=== PATIENT | male | born 1990 | race Two or more races ===

== ENCOUNTER 2017-06-11 18:39 | Emergency (ER) | payer SELFPAY ==
[~2017-06-11] VITALS: Ht 160 cm; Wt 61.2 kg
--- NOTE | 2017-06-11 18:45 | NUR ---
BBRA 61 FROM HOME FOR PAIN TO LEFT RIB CAGE AREA X 3 MONTHS. A/OX 4. BREATHING EVEN AND UNLABORED. NO SOB, NAD. VITALS STABLE. SAFETY AND COMFORT MEASURES IN PLACE. AWAITING MD ORDERS.
--- NOTE | 2017-06-11 19:08 | NUR ---
OFELIA BOSTON AT BEDSIDE FOR EVAL. REPORT GIVEN TO ELICEO JOHANSEN FOR CASEY.
[2017-06-11 19:11] VITALS: BP 144/75
--- NOTE | 2017-06-11 19:18 | NUR ---
Patient eloped from facility. ER MD notified.
== END 2017-06-11 19:20 | disposition left against medical advice (07) ==
LOC: ER 18:41
DX: R07.81 Pleurodynia (principal)
CPT/HCPCS: A4606; Z7610

== ENCOUNTER 2020-03-01 10:33 | Emergency (ER) | payer OTHER ==
[~2020-03-01] VITALS: Ht 157.5 cm; Wt 59.4 kg
--- NOTE | 2020-03-01 10:40 | NUR ---
PT BIBRA C/O OVERDONE WITH HEROIN AND XANAX, PER REPORT PT WAS GIVEN 1MG OF NARCAN PRIOR TO ARRIVAL. PT IS EASILY AROUSABLE TO NAME, VERBALLY RESPONSIVE. BREATHING EVEN AND UNLABORED. VS CHECKED. HOOKED ON MONITOR. WAITING MD ARNOLD.
[2020-03-01] MEDS ORDERED: NALOXONE PREFILLED SYRINGE 2 MG/2 ML SYRINGE ONE (11:11)
[2020-03-01 11:29] LABS: BASOPHILS # (AUTO) 0.1 /CMM (0.0-0.2); BASOPHILS % (AUTO) 1.2 % (0.0-2.0); EOSINOPHILS % (AUTO) 9.8 % (0.0-6.0); HEMATOCRIT 42 % (39-51); HEMOGLOBIN 13.1 g/dL (13.5-17.5); MEAN CORPUSCULAR HGB CONC 32 g/dl (31.0-36.0); MEAN CORPUSCULAR VOLUME 86 fL (80-96); MONOCYTES # (AUTO) 0.5 /CMM (0.1-1.30); MONOCYTES % (AUTO) 4.9 % (2.0-12.0); NEUTROPHILS # (AUTO) 5.8 /CMM (1.8-8.9); NEUTROPHILS % (AUTO) 62.1 % (43.0-81.0); PLATELET COUNT (AUTO) 345 /CMM (150-450); RED BLOOD CELL COUNT(AUTO) 4.84 MIL/uL (4.5-6.0); WHITE BLOOD COUNT (AUTO) 9.3 K/uL (4.3-11.0)
[2020-03-01] MEDS ORDERED: IV NS 0.9% 1,000 ML BAG IV ONE (11:30)
[2020-03-01] MEDS ORDERED: NALOXONE HCL 0.4 MG/ML AMPUL IV ONE (11:30)
[2020-03-01 11:35] LABS: CALCIUM, SERUM 9.1 mg/dL (8.5-10.1); CARBON DIOXIDE 27 mmol/L (21-32); CHLORIDE 105 mmol/L (98-107); CREATININE 0.6 mg/dL (0.6-1.3); GLUCOSE 108 mg/dL (74-106); POTASSIUM 4.4 mmol/L (3.5-5.1); SODIUM SERUM 140 mmol/L (136-145); UREA NITROGEN, BLOOD 11 mg/dL (7-18)
[2020-03-01 11:37] LABS: ALCOHOL, BLOOD < 3 mg/dL (0-0)
--- NOTE | 2020-03-01 13:35 | NUR ---
PT IS AROUSABLE TO VERBAL AND TACTILE STIMULI. HOWEVER STILL LETHARGIC. VSS
--- NOTE | 2020-03-01 15:00 | NUR ---
PT IS AROUSABLE TO VERBAL AND TACTILE STIMULI. BREATHING EVEN AND UNLABORED. NO CARDIAC OR RESPIRATORY DISTRESS NOTED. NO SOB NOTED. HOWEVER STILL VERY SLEEPY AND LETHARGIC. VSS
--- NOTE | 2020-03-01 18:28 | NUR ---
PT IN BED STILL SLEEPING. AROUSABLE TO VERBAL AND TACTILE STIMULI. BREATHING EVEN AND UNLABORED. NO CARDIAC OR RESPIRATORY DISTRESS NOTED. NO SOB NOTED. HOWEVER STILL VERY SLEEPY AND LETHARGIC. VSS
--- NOTE | 2020-03-01 18:35 | NUR ---
PT IS AWAKE. ABLE TO STAND AND AMBULATE WITH STEADY GAIT. PT HAS NO SWALLOWING DIFFICULTIES. PT IS AT HIS BASELINE MENTAL STATUS. AOX4.
--- NOTE | 2020-03-01 18:43 | NUR ---
CALLED [facility] TO PICK PT UP.
[2020-03-01 19:31] VITALS: BP 124/67
--- NOTE | 2020-03-01 19:31 | NUR ---
Patient discharged to home in stable condition. Written and verbal after care instructions given. Patient verbalizes understanding of instruction and RX. Pt ambulated out of E.D. Picked up by girlfriend.
--- NOTE | 2020-03-01 19:31 | NUR ---
IV removed. Catheter intact and site benign. Pressure and 4x4 applied to site. No bleeding noted.
== END 2020-03-01 19:32 | disposition home or self-care (01) ==
LOC: ER 10:33
DX: T40.1X1A Poisoning by heroin, accidental (unintentional), initial encounter (principal); Y92.89 Other specified places as the place of occurrence of the external cause
CPT/HCPCS: 36415; 80048; 80320; 85025; 96361; 96374; 99285; J2310; J7030; G0480